=== PATIENT | female | born 1970 | race Caucasian/White ===

== ENCOUNTER → 2022-10-22 | Outpatient (CLI) | payer BC | END | disposition home or self-care (01) | LOC: SHCH 11:01 | PROVIDERS: ATTEND Student in an Organized Health Care Education/Training Program | DX: R00.2 Palpitations (principal) | CPT/HCPCS: 93306 ==

== ENCOUNTER → 2024-10-03 | Outpatient (CLI) | payer BC ==
--- NOTE | 2024-10-03 13:39 | HMCIMG ---
US THYROID/NECK HISTORY: Goiter COMPARISON: None TECHNIQUE: Thyroid ultrasound study was performed. FINDINGS: Right thyroid lobe measures 3.7 x 1.2 x 1 cm. Left thyroid lobe measures 3.4 x 1 x 0.9 cm. No discrete thyroid nodule is seen. There is hypoechoic nodule at the inferior aspect of the left thyroid lobe measuring 7 x 3 x 5 mm may be related to lymph node. Multiple cervical lymph nodes are also seen with the largest measuring 4 x 3 x 10 mm.. IMPRESSION: 1. No discrete thyroid nodule is seen. Multiple cervical lymph nodes with the largest measuring 12 x 3 x 10 mm.
== END | disposition home or self-care (01) ==
LOC: RAH 12:51
PROVIDERS: ATTEND Student in an Organized Health Care Education/Training Program
DX: E04.1 Nontoxic single thyroid nodule (principal); R59.0 Localized enlarged lymph nodes
CPT/HCPCS: 76536

== ENCOUNTER → 2024-10-17 | Outpatient (CLI) | payer BC ==
--- NOTE | 2024-10-17 13:48 | HMCIMG ---
Exam Type: HIP BILAT 3-4VW Clinical Information: PELVIC PAIN, BI LAT HIP PAIN Comparison: None Findings: The bone examination is unremarkable. No fractures or dislocations are seen. No radiopaque foreign bodies are noted. Soft tissues are preserved. IMPRESSION: Normal examination.
--- NOTE | 2024-10-17 13:49 | HMCIMG ---
Exam Type: LUMBAR SPINE 2-3VWS Clinical Information: BACK PAIN Comparison: None Findings: The bone examination is unremarkable. No fractures or dislocations are seen. No radiopaque foreign bodies are noted. Soft tissues are preserved. IMPRESSION: Normal examination.
--- NOTE | 2024-10-17 13:49 | HMCIMG ---
Exam Type: THORACIC SPINE 3VWS Clinical Information: BACK PAIN Comparison: None Findings: The bone examination is unremarkable. No fractures or dislocations are seen. No radiopaque foreign bodies are noted. Soft tissues are preserved. IMPRESSION: Normal examination.
--- NOTE | 2024-10-17 13:50 | HMCIMG ---
Exam Type: CERV SPINE 2-3VWS Clinical Information: CERVICALGIA Comparison: None FINDINGS: C1 through the top of T1 are seen on the lateral view. The prevertebral soft tissues are normal. There are no fractures or dislocation C1-C7. There is straightening of the normal cervical lordosis consistent with spasm. The disc spaces are normal as is the distance between the arch of C1 and the dens. The spinolaminar line is smooth and the spinous process tips intact. The AP view of the cervical spine is unremarkable. IMPRESSION: Cervical spasm.
--- NOTE | 2024-10-17 13:51 | HMCIMG ---
Exam Type: CHEST 2VWS Clinical Information: CHEST PAIN Comparison: None Findings: The lungs are clear of infiltrates. The heart is normal in size. The bony and soft tissue structures of the chest are unremarkable. Impression: Clear lungs.
== END | disposition home or self-care (01) ==
LOC: RAH 12:30
PROVIDERS: ATTEND Nurse Practitioner
DX: M54.2 Cervicalgia (principal); R25.2 Cramp and spasm; R07.9 Chest pain, unspecified; M54.50 Low back pain, unspecified; M25.552 Pain in left hip; M25.551 Pain in right hip; R10.2 Pelvic and perineal pain
CPT/HCPCS: 71046; 72040; 72072; 72100; 73522

== ENCOUNTER → 2024-10-23 | Outpatient (CLI) | payer BC ==
[~2024-10-23] MED LIST: IOHEXOL-350 75 ML VIAL IV ONE
--- NOTE | 2024-10-23 16:12 | HMCIMG ---
Exam Type: CT NECK SOFT TISS W/CONTRAST Clinical Information: THYROID NODULES Comparison: None CT Dose Index (CTDI): 7.98 mGy Dose Length Product (DLP): 178.1 total mGy-cm PROTOCOL: Photography is done at 3.8 millimeter thick intervals for the head. The study was performed in the axial plane, and reconstructed and photographed in sagittal and coronal planes as well. Findings: No lymphadenopathy is seen. No fluid collections or masses are identified. The vascular, muscular, as well as subcutaneous structures are preserved. No significant paranasal sinus pathology is seen. The base of the skull is unremarkable. There are no significant upper airway abnormalities. IMPRESSION: Normal CT of the neck. This study was performed using dose reduction techniques to include automated exposure control and/or adjustment of the mA and/or kV according to patient size.
== END | disposition home or self-care (01) ==
LOC: RAH 14:16
PROVIDERS: ATTEND Nurse Practitioner
DX: E04.2 Nontoxic multinodular goiter (principal)
CPT/HCPCS: 70491; Q9967